=== PATIENT | male | born 1965 | race Caucasian/White ===

== ENCOUNTER 2025-02-22 06:31 | Day surgery (SDC) | payer BC, SELFPAY | END 2025-02-22 12:47 | disposition home or self-care (01) | LOC: GI 06:31 | PROVIDERS: ATTENDING PHYSICIAN Surgery | DX: Z12.11 Encounter for screening for malignant neoplasm of colon (principal); K64.9 Unspecified hemorrhoids; D12.0 Benign neoplasm of cecum; D12.2 Benign neoplasm of ascending colon; D12.3 Benign neoplasm of transverse colon; D12.4 Benign neoplasm of descending colon; Z85.038 Personal history of other malignant neoplasm of large intestine | CPT/HCPCS: 45385; 45380; 88305 ==

== ENCOUNTER → 2025-11-24 12:00 | Outpatient (REF) | payer BC, SELFPAY | LOC: DHSLP 12:00 | PROVIDERS: ATTENDING PHYSICIAN Internal Medicine; FAMILY PHYSICIAN Family Medicine | DX: G47.33 Obstructive sleep apnea (adult) (pediatric) (principal); R09.02 Hypoxemia | CPT/HCPCS: 95800 ==